=== PATIENT | male | born 1945 | race Caucasian/White ===

== ENCOUNTER 2023-09-01 12:50 | Outpatient (CLI) | payer OTHER, SELFPAY ==
--- NOTE | ~2023-09-01 | XR_ITS ---
Right Shoulder Technique: AP and scapular Y views were obtained. Clinical History: Pain Findings: No fracture or dislocation is seen. Osseous alignment is anatomic. There is moderate to adv anced AC joint degenerative change. There is minimal degenerative change of the glenohumeral joint. S oft tissues are unremarkable. Impression: Degenerative changes, as detailed above. Reviewed, dictated and finalized at location M. INE SHOP INSPECTOR Impression: Degenerative changes, as detailed above.
== END 2023-09-01 12:51 | disposition home or self-care (01) ==
PROVIDERS: PCP Family Medicine; Visit Provider Physician Assistant Surgical
DX: M25.511 Pain in right shoulder (principal)
CPT/HCPCS: 73030

== ENCOUNTER 2023-11-07 12:28 | Outpatient (CLI) | payer OTHER, SELFPAY ==
--- NOTE | ~2023-11-07 | MR_ITS ---
MRI of the right shoulder Technique: Axial proton-density fat-sat images, coronal proton density fat-sat and T2 fat-sat images, and sagittal T1-weighted and T2 fat-sat images were acquired. Clinical History: Pain Findings: There is severe AC joint degenerative change with prominent bony productive change of the d istal clavicle and acromion, with subcortical spur and prominent fluid within the joint space. Possib le rupture of the inferior acromioclavicular ligament. There is a 1.2 x 1.3 cm area of full-thickness tearing at the anterior, distal supraspinatus tendon i nsertion. There is background moderate supraspinatus and infraspinatus tendinosis. No partial or full -thickness tear of the infraspinatus tendon. Subscapularis tendon is intact, with mild to moderate te ndinosis. Tendon of long head of the biceps is intact. There is probable superior labral tear. Inferior glenohumeral ligament is intact, with mild thickening and increased signal. There is minimal glenohumeral joint effusion and mild degenerative change. There is mild fluid within the subacromial /subdeltoid bursa. No muscle atrophy or edema. Impression: 1.2 x 1.3 cm area of full-thickness tear at the anterior, distal supraspinatus tendon insertion. Severe AC joint degenerative change. Background rotator cuff tendinosis, as above. Probable focal superior labral tear. Reviewed, dictated and finalized at [facility]. LE PUNCH MACHINE OPERATOR HELPER Impression: 1.2 x 1.3 cm area of full-thickness tear at the anterior, distal supraspinatus tendon insertion. Severe AC joint degenerative change. Background rotator cuff tendinosis, as above. Probable focal superior labral tear.
== END 2023-11-07 12:29 | disposition home or self-care (01) ==
PROVIDERS: PCP Family Medicine; Visit Provider Physician Assistant Surgical
DX: M19.011 Primary osteoarthritis, right shoulder (principal)
CPT/HCPCS: 73221

== ENCOUNTER 2024-02-03 00:13 | Day surgery (SDC) | payer OTHER, SELFPAY ==
[2024-01-25 08:10] VITALS: BMI 26.9
--- NOTE | 2024-01-25 08:15 | PC.NURSE ---
Report to the Outpatient Waiting Room, entrance under the green pavilion located off [facility], at time ____30___ on date __02/03/24 . Planned Procedure Time: ___1030 . Time changes happen often and if your time is changed the preop area will call you the afternoon before. - You and your visitor will be asked to self-screen and do not enter if you have any COVID symptoms. - A mask is optional within the hospital at this time. Patients may have clear liquids (water, carbonated beverages, clear teas, apple juice) until 3 hours prior to surgery (0730 AM) with a maximum of 20 ounces. - No food from midnight until time of surgery - Infants may have breast milk until 4 hours before surgery, formula 6 hours prior to surgery. - Children will be allowed to drink immediately following surgery. If applicable, please bring a bottle or sippy cup to assist with drinking. Juice, water, soda, and popsicles are readily available. For infants on formula, please bring formula the day of surgery. Pacifiers are allowed. Take the following medications with a SIP of water the morning of surgery: NONE DO NOT STOP ANY OF YOUR OTHER PRESCRIPTION MEDICATIONS PRIOR TO SURGERY ?EXCEPT THE FOLLOWING Medications to discontinue per physician ___PT STATES TO STOP ALL VITAMINS/SUPPLEMENTS 7 DAYS PRIOR TO SURGERY PER DR. LIMON, Date to take last dose 01/26/24_ Please no make-up, nail uzbek, hairspray, perfume, deodorant, or body powder the day of surgery. No jewelry (including any body piercings) or valuables the day of surgery, leave them at home. Please take a shower or bath the night before, or the morning of, surgery with an antibacterial soap. Wear comfortable, loose fitting clothing. Children are encouraged to wear pajamas. - Jewelry must be removed prior to entering the operating room. Rings and piercings that are not removed may be cut off. - The hospital will not accept responsibility for valuables. - Please leave all valuables, including medications, at home the day of surgery. If you are going home after surgery, a licensed forklift driver must drive you home. - NO public transportation without another adult if you receive anesthesia. - We recommend that an adult stay with you for 24 hours following discharge. - We also recommend that you do not drive, make important decision, drink alcoholic beverages, or take any drugs that were not prescribed by your health care provider for at least 24 hours after your discharge time. For Pediatric surgeries, we recommend two adults accompany the child home. Follow any additional instructions given to you from your surgeon. If you or anyone in your household have experienced Covid symptoms in the past week, please notify your surgeon or the nurse liaison at the phone number below for possible testing. Telephone instructions given to PT and asked if any additional questions and then verbalized understanding. Patient advised to call surgeon office or pre surgery nurse liaison [phone] if any additional questions.
[2024-02-03] VITALS (12 sets, daily range): BP systolic 90–133; BP diastolic 50–88; PULSE 54–69; RESP 14–18; TEMP 36.1–36.2; O2SAT 93–99; BMI 26.9
--- NOTE | ~2024-02-03 | XR_ITS ---
EXAMINATION: XR shoulder RT min 2V DATE: 02/03/2024 12:23 INDICATION: Right shoulder rotator cuff repair. Postop. TECHNIQUE: 2 views of right shoulder were obtained. COMPARISON: Right shoulder radiographs 09/01/2023 FINDINGS: Bone alignment is normal. No fracture. There is mild osteoarthritis of glenohumeral joint. There are are changes of resection of osteophytes from acromion and distal clavicle. There is soft ti ssue gas, consistent with recent surgery. IMPRESSION: 1. Mild glenohumeral joint osteoarthritis. Reviewed, dictated and finalized at location E.
[2024-02-03] MEDS: LACTATED RINGERS 1,000 ML 30 ML IV CONT ×2 (08:45→12:09)
[2024-02-03] MEDS: KETOROLAC 15 MG/ML VIAL (*BKC) IV PUSH (08:57)
[2024-02-03] MEDS: ACETAMINOPHEN 500 MG TABLET 1000 MG PO (08:57)
--- NOTE | 2024-02-03 09:06 | WPDHPUPDATE1 ---
History and Physical Update Update Date/Time: 02/03/24 09:06 History and Physical has been reviewed, including an updated exam of the patient. There are NO changes in the patient's condition. Risks, benefits, and alternatives have been discussed and questions answered. Patient agrees to proceed with procedure.
[2024-02-03] MEDS: ceFAZolin 2 GM/D5W 50 ML 2 GM/50 ML BAG IVPB (09:37)
--- NOTE | 2024-02-03 09:38 | WPDANESEPPF ---
Anes - Initial Pre Proc Eval Procedure: Operation Date: 02/03/24 10:30 Proposed Procedures p Right Shoulder Arthroscopic Rotator Cuff Repair Distal Clavicle Excision with Subacromial Decompression - Lazaro Hanley MD Date/Time: 02/03/24 09:38 Surgeon: Lazaro Hanley MD Pre Op Diagnosis: right rotator cuff tear Patient Data Age: 78 Gender: M Height: 1.79 m Weight: 86.5 kg Last Vital Signs Temp 97.2 F L 02/03/24 08:25 Pulse 64 02/03/24 08:25 Resp 14 02/03/24 08:25 BP 133/62 02/03/24 08:25 Pulse Ox 99 02/03/24 08:25 O2 Del Method Room Air 02/03/24 08:25 Allergies Allergy/AdvReac Type Severity Reaction Status Date / Time No Known Allergies Allergy Verified 02/03/24 09:00 Home Medications Medication Instructions Recorded Confirmed Type multivitamin 1 tablet PO DAILY 07/02/20 02/03/24 History Prevagen 1 tab-cap DAILY 01/25/24 02/03/24 History vit C 250 mg-vit E 90 mg-zinc 40 1 tablet PO DAILY 01/25/24 02/03/24 History mg-copper 1 ft-ytidnw-bewidk capsule (PreserVision AREDS-2) oxycodone-acetaminophen 5 mg-325 1 - 2 tablet PO Q4-6H PRN pain #30 02/03/24 Rx mg tablet tabs Patient hx anesthesia problems: none Family hx anesthesia problems: none Results Review: All pre-operative results and documents have been reviewed as part of the pre-operative evaluation. [facility] Past Medical History Medical History CKD (chronic kidney disease) stage 3, GFR 30-59 ml/min HLD (hyperlipidemia) IFG (impaired fasting glucose) Social History Social History Years smoked: 1 Smoking status: Former smoker Tobacco type: cigarettes Second hand tobacco smoke exposure: No Smoking end date: 09/20/59 Alcohol intake: never Substance use: never Substance use type: does not use Do You Feel Safe in your Home?: Yes Lack of Transportation: No Lack of Food: Never True Current Housing: I Have Housing Concerned About Future Housing: No Difficulty Paying Gas/Electric Bills: No Difficulty Paying for Meds: No Currently Unemployed: No Education: High School Diploma/GED Difficulty w/ Childcare or Family Care: No Living arrangements: with family Occupation/Education: retired Gender identity (if verbalized by the patient): Male Sexual Orientation (if Verbalized by the Patient): Straight or Heterosexual Spiritual care concerns: No Anes - Eval Final PreProcedure Day of Procedure 02/03/24 09:38 Patient weight: normal Heart: regular rate and rhythm Lungs: clear to auscultation Airway: Mallampati scale class II Neurological: alert and oriented Last oral intake: >/= 8 hours ASA classification: II Emergent: no Anesthetic plan: proceed Anesthesia type and monitoring: general, regional (ISB discussed w pt and family. ) other and standard monitoring Results Review: All pre-operative results and documents have been reviewed as part of the pre-operative evaluation. Pt w CKD stage 3, otherwise very physically active w gym work several times/week, no cp or sob. Informed Consent: The patient's anesthetic plan and its attendant risks and benefits were discussed with the patient/family/POA. Questions were solicited and answers provided to the satisfaction of the patient/family/POA.
--- NOTE | 2024-02-03 09:39 | WPDANESPNB ---
Anes - Peripheral Nerve Block Date/Time: 02/03/24 09:39 I have discussed with the patient/family/POA the placement of a peripheral nerve block for post-operative pain management, including associated risks, benefits, complications, and side effects. Alternative methods of post-operative analgesia were detailed. Questions were solicited and answers provided to the satisfaction of the patient/family/POA. Time-Out: A pre-procedural Time-Out was completed immediately before starting the procedure and confirmed: Patient Identification, Site, Procedure, Patient Position and the Availability of Requisite Equipment. Clinical Indications: Acute post-operative pain management requested by the operative surgeon. Nerve Block Insertion Note Anes-nerve block: interscalene right Patient position: supine Skin prep: chlorhexidine Needle: 22 gauge, stimulating, insulated echogenic needle. Needle length: 80 mm Technique: ultrasound Injectate: other (Bupiv 0.5%, 15 mls. ) Observations: tolerated well Complications: none Procedure start time:: 7 Procedure end time::
[2024-02-03] MEDS: EPINEPHrine HCL INJ 1 MG/ML AMPUL 3 MG IRRIGATION (10:33)
--- NOTE | 2024-02-03 11:23 | SUR.OPER ---
Perry shoulder immobilizer sent with patient in packing marked with patient sticker
--- NOTE | 2024-02-03 12:41 | P.OP_ITS ---
Procedure Note - Detailed Date of Procedure 02/04/24 Pre-op Diagnosis Right rotator cuff tear Post-op Diagnosis Other (1. Rotator cuff tear 2. Subacromial impingement 3. A/C joint arthritis 4. Degenerative SLAP tear) Procedure Performed Right shoulder 1. Arthroscopic rotator cuff repair 2. Arthroscopic subacromial decompression 3. Arthroscopic distal clavicle excision 4. Arthroscopic labral debridement with biceps tenotomy Surgeon Lazaro Hanley MD Shredding Floor Equipment Operator Nancie Stokes PA-C Anesthesia General and Regional ( interscalene block) Description of Procedure Preoperative antibiotics were given. An interscalene block was administered in the preoperative area. The patient was bought brought to the operating room. A general anesthetic was administered. The patient was carefully positioned in the beach chair position. The head and neck were carefully positioned. The non operative extremity was also carefully positioned. The shoulder was prepped and draped in the usual sterile fashion. Examination was performed. Standard posterior and anterior arthroscopic portals were established. Inflow achieved with the arthroscopic pump using saline and epinephrine. The glenohumeral joint was carefully inspected. There was moderate chondromalacia on the humerus. M ild on the inferior and posterior glenoid. The labrum showed degenerative tearing posterior and anterior. Gentle debridement was performed on the labrum.. Attention was turned to the subacromial space. A complete bursectomy was performed. The rotator cuff and footprint were lightly debrided. There was a type 3 acromion. An acromioplasty was performed. The tear configuration was carefully assessed. At this point, 2 tunnels were created at the rotator cuff. The ArthroTunneler technique was utilized. Three sutures were passed through each tunnel. All sutures were then passed through the cuff tissue. I supplemental lateral suture anchor was used with 2 horizontal mattress sutures placed in the cuff tissue. The sutures were tied arthroscopically. The distal clavicle was excised with the bur. An accessory anterior portal was utilized. Approximately 10 mm of bone was removed. Care was taken to assess complete resection using the 70 degree arthroscope. The arthroscopic instruments were removed. The wounds were closed with 3-0 Monocryl subcuticular suture and steri strips. There were no complications. A sling was applied and the patient brought to the recovery room. Physician case management assistant, Nancie Stokes PA-C, required for surgery; including patient positioning, draping, arthroscopic camera operation, maintaining instrument position, suture retrieval, wound closure, and dressing and sling placement. Implants Arthrex SwiveLock anchor. Estimated Blood Loss 10 Pathology None sent Complications No immediate complications Condition Stable Disposition PACU [facility] Billing Surgery - Charge Forward: Surgery Billing
== END 2024-02-03 14:26 | disposition home or self-care (01) ==
PROVIDERS: PCP Family Medicine; Visit Provider Orthopaedic Surgery
PROC: (CPT 29805; principal; 2024-02-03 10:30)
DX: M75.121 Complete rotator cuff tear or rupture of right shoulder, not specified as traumatic (principal); M75.41 Impingement syndrome of right shoulder; M75.81 Other shoulder lesions, right shoulder; M19.011 Primary osteoarthritis, right shoulder; E78.5 Hyperlipidemia, unspecified; N18.30 Chronic kidney disease, stage 3 unspecified; R73.01 Impaired fasting glucose; G89.18 Other acute postprocedural pain; Z79.891 Long term (current) use of opiate analgesic; Z87.891 Personal history of nicotine dependence
CPT/HCPCS: 64415; 29827; 29826; 29824; 73030; A4565; A9270; C1713; J0171; J0690; J1885; J2250; J3010; J7120

== ENCOUNTER 2024-12-03 13:00 | Emergency (ER) | payer OTHER, SELFPAY ==
--- NOTE | ~2024-12-03 | CT_ITS ---
EXAMINATION: CT abdomen pelvis wo con DATE: 12/03/2024 15:20 INDICATION: urinary frequency, dysuria TECHNIQUE: Computed tomography (CT) of the abdomen and pelvis was performed without intravenous contr ast. Automated exposure control and iterative reconstruction technique were employed. The dose-length product was 269.72 mGy-cm. COMPARISON: None. FINDINGS: Lower thorax: Bibasilar scar. Coronary artery, aortic valve, and mitral calcification Liver: Normal. Biliary/Gallbladder: Gallbladder is normal. No bile duct dilation. Pancreas: No mass or duct dilation. Spleen: Normal. Adrenals:No mass. Kidneys: No suspicious mass, obstructing stone, or hydronephrosis. GI tract: No small or large bowel dilation. Normal appendix. Diverticulosis without diverticulitis. Mesentery/Peritoneum: No ascites, mass, or free air. Retroperitoneum: No mass. Pelvis: Partially distended urinary bladder with wall thickening. Nondependent layering fat density i ntraluminal material, not apparently associated with the bladder wall. No bladder air. Prostatomegaly . Soft Tissues: Right iliopsoas atrophy. Small fat-containing umbilical and left inguinal hernias. Bones: No acute osseous finding. Multilevel degenerative disc disease. Grade 1 anterolisthesis at L4 -5. IMPRESSION: Bladder wall thickening as can be seen with cystitis. Nondependent layering fat-density intraluminal material in the urinary bladder, which may represent c hyluria. Correlate for milky appearing urine and with urinalysis. Microscopic analysis of urine may r eveal fat globules. This finding can be seen following transurethral injection of lubricants or oils, surgery or trauma, parasitic and nonparasitic infections, and prostate carcinoma. Reviewed, dictated and finalized at location [facility]. IMPRESSION: Bladder wall thickening as can be seen with cystitis. Nondependent layering fat-density intraluminal material in the urinary bladder, which may represent chyluria. Correlate for milky appearing urine and with uri nalysis. Microscopic analysis of urine may reveal fat globules. This finding ca n be seen following transurethral injection of lubricants or oils, surgery or t rauma, parasitic and nonparasitic infections, and prostate carcinoma.
--- OUTSIDE RECORDS SUMMARY | 2024-12-03 13:05 | XMS_ITS | Clinical Summary ---
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 Name Role Phone Unavailable Primary Care Provider Unavailabl e Social History Tobacco Use Types Packs/Day Years Used Date Smoking Tobacco: Never Assessed Sex and Gender Information Value Date Recorded Sex Assigned at Not on file Legal Sex Male 4:29 PM CDT Gender Identity Not on file Sexual Orientation Not on file Plan of Treatment Health Maintenance Due Date Last Done Comments DTaP, Tdap and Td Vaccines ( 1 - Tdap) 1963 Zoster Vaccines (1 of 2) 1994 Pneumococcal Vaccine: 65+ Ye ars (1 of 1 - PCV) 2009 RSV Immunization or 60+ Years (1 - 1-dose 75+ series) 2019 COVID-19 Vaccine ( - 2023-2 5 season) 2024 Influenza Adult (#1) 2024 Meningococcal B Vaccine Aged Out No l onger eligible based on patient's age to complete this topic Meningococcal Vaccine Aged Out No lupillo jimmie eligible based on patient's age to complete this topic RSV Immunizations Under 20 Months Aged Out No longer eligible based on patient's age to complete this topic
[2024-12-03 13:11] VITALS: BP 147/80; PULSE 79; RESP 18; TEMP 36.3; O2SAT 100
--- OUTSIDE RECORDS SUMMARY | 2024-12-03 14:12 | XMS_ITS | Clinical Summary ---
Author Organization [facility] Address [address] [place] [id number] Care Team Providers Care Ground Crew Linesman Name Role Phone Unavailable Primary Care Provider [...]
[2024-12-03 14:16] LABS: Basophils Absolute Auto 0.1 K/mm3 (0.0-0.1); Basophils Percent Auto 0.7 % (0.2-1.2); Eosinophils Absolute Auto 0.1 K/mm3 (0-0.3); Eosinophils Percent Auto 1.9 % (0-4.4); Hematocrit 38.9 % (42.0-52.0); Hemoglobin 13.2 g/dL (14.0-18.0); Immature Granulocyte Absolute 0.06 K/mm3 (0.00-0.031); Immature Granulocyte Percent A 0.9 % (0-0.5); Lymphocytes Percent Auto 32.6 % (18.3-44.2); Mean Corpuscular HGB Conc 33.9 g/dl (32-36); Mean Corpuscular Hemoglobin 30.7 pg (26-34); Mean Corpuscular Volume 90.5 fl (80-100); Mean Platelet Volume 8.7 fl (7.4-10.4); Monocytes Absolute Auto 0.6 K/mm3 (0.1-0.6); Monocytes Percent Auto 8.3 % (2.6-8.5); Neutrophils Absolute Auto 3.8 K/mm3 (1.3-6.7); Neutrophils Percent Auto 55.6 % (45.5-73.1); Platelet Count Result 337 k/mm3 (150-375); Red Cell Distribution Width 12.5 % (11.5-14.5); White Blood Count 6.8 K/mm3 (4.5-10.0)
[2024-12-03 14:28] LABS: Anion Gap 8 mmol/L (4-12); Blood Urea Nitrogen 16 mg/dL (9-20); Calcium 9.2 mg/dL (8.4-10.2); Carbon Dioxide 26 mmol/L (22-30); Chloride 104 mmol/L (98-107); Estimated CRCL calculation 50 ml/min; Estimated Glomerular Filt Rate > 60; Glucose 119 mg/dL (65-110); Potassium 3.9 mmol/L (3.4-5.0); Sodium 138 mmol/L (137-145)
[2024-12-03 14:48] LABS: Add Urine Microscopic? YES; Appearance Urine Clear (Clear); Bacteria Urine None Seen /hpf; Bilirubin Urine Negative (Negative); Blood Urine Negative (Negative); Color Urine Dark Yellow (Yellow); Glucose Urine UA Negative (Negative); Ketones Urine Negative (Negative); Leukocyte Esterase Ur Trace LEU/UL (Negative); Nitrate Urine Negative (Negative); Non Pathogenic Casts 0-2; Protein Urine Negative (Negative); RBC Urine 0-2 /hpf (0-2); Specific Grav Ur 1.013 (1.001-1.035); Squamous Epithelial Cell Urine None Seen /hpf (Few); WBC Urine 0-5 /hpf (0-3); pH Urine 6.5 (5.0-9.0)
--- NOTE | 2024-12-03 14:49 | ED_ITS ---
HPI - Male Genitourinary General Chief complaint: Urogenital-Male Stated complaint: increased urinary frequency Time Seen by Provider: 12/03/24 14:04 Source: patient Mode of arrival: ambulatory Limitations: no limitations History of Present Illness HPI Narrative: This is a 79-year-old male that presents to the emergency department for urinary frequency. Ongoing over the last week. Reports associated chills. Denies fevers, flank pain, vomiting, hematuria. Related Data Home Medications ?Medication ?Instructions ?Recorded ?Confirmed ?Last Taken ?Type multivitamin 1 tablet PO DAILY 07/02/20 08/14/24 01/26/24 History Prevagen 1 tab-cap DAILY 01/25/24 08/14/24 01/26/24 History vit C 250 mg-vit E 90 mg-zinc 40 1 tablet PO DAILY 01/25/24 08/14/24 01/26/24 History mg-copper 1 an-nxulac-zxgrah capsule (PreserVision AREDS-2) Allergies Allergy/AdvReac Type Severity Reaction Status Date / Time No Known Allergies Allergy Verified 12/03/24 13:16 Review of Systems 2 Review of Systems: CONSTITUTIONAL: Denies fever GASTROINTESTINAL: Denies abdominal pain, nausea, vomiting GENITOURINARY: Denies dysuria or hematuria. All systems reviewed & are unremarkable except as noted in HPI and below PMFSH Past Medical History Medical History CKD (chronic kidney disease) stage 3, GFR 30-59 ml/min HLD (hyperlipidemia) IFG (impaired fasting glucose) Surgical History Surgical History Status post arthroscopy of right shoulder (~02/03/24) Right RCR, DCE, SAD, labral debridement with biceps tenotomy Social History Social History Years smoked: 1 Smoking status: Former smoker Tobacco type: cigarettes Second hand tobacco smoke exposure: No Smoking end date: 09/20/59 Alcohol intake: never Substance use: never Substance use type: does not use Do You Feel Safe in your Home?: Yes Lack of Transportation: No Lack of Food: Never True Current Housing: I Have Housing Concerned About Future Housing: No Difficulty Paying Gas/Electric Bills: No Difficulty Paying for Meds: No Currently Unemployed: No Education: High School Diploma/GED Difficulty w/ Childcare or Family Care: No Living arrangements: with family Occupation/Education: retired Gender identity (if verbalized by the patient): Male Sexual Orientation (if Verbalized by the Patient): Straight or Heterosexual Spiritual care concerns: No Exam 2 Narrative: GENERAL: Well-appearing, well-nourished, and in no acute distress. HEAD: Normocephalic, atraumatic. EYES: EOMI. CHEST: Clear to auscultation. No respiratory distress. No wheezes rales or rhonchi HEART: Regular rate and rhythm. No murmur heard. Normal peripheral pulses. ABDOMEN: Soft, nontender, nondistended, normal active bowel sounds. No CVA tenderness EXTREMITIES: Normal range of motion. No edema. SKIN: Warm, dry, no rash. NEURO: No focal deficits. Alert and oriented x3. PSYCH: Normal mood and affect Course Course Emergency Course: Patient updated on his workup and agrees with plan of care Consultations Consultation #1: Spoke with Dr. Coleman about patient and workup. Patient should follow up outpatient for a cystoscopy Date: 12/03/24 Vital Signs Vital signs: Vital Signs Temperature 97.4 F L 12/03/24 13:11 Pulse Rate 79 12/03/24 13:11 Respiratory Rate 18 12/03/24 13:11 Blood Pressure 147/80 H 12/03/24 13:11 Pulse Oximetry 100 12/03/24 13:11 Oxygen Delivery Room Air 12/03/24 13:11 Temperature 97.4 F L 12/03/24 13:11 Pulse Rate 79 12/03/24 13:11 Respiratory Rate 18 12/03/24 13:11 Blood Pressure 147/80 H 12/03/24 13:11 Pulse Oximetry 100 12/03/24 13:11 Oxygen Delivery Room Air 12/03/24 13:11 MDM - Male Genitourinary MDM Narrative Medical decision making narrative: Patient presents to the emergency department for urinary frequency. Patient is afebrile and nontoxic appearing. Cbc without leukocytosis. Kidney function is normal. Urine with 1+ leuk esterase, otherwise is negative for any findings of infection. This will be sent for culture. CT abdomen pelvis shows bladder wall thickening, prostatomegaly. Spoke with Dr. Coleman about patient and workup. Patient should follow up outpatient for a cystoscopy. Patient updated on his workup and agrees with plan of care Differential Diagnosis Differential diagnosis: Likely urinary tract infection, prostatitis, acute retention of urine and other (Kidney stone, prostatomegaly) Lab Data Attestation: I reviewed the patient's lab results. 12/03/24 14:11 12/03/24 14:11 Labs: Lab Results 12/03/24 12/03/24 Range/Units 14:11 14:40 WBC 6.8 (4.5-10.0) K/mm3 RBC 4.30 L (4.6-6.20) M/mm3 Hgb 13.2 L (14.0-18.0) g/dL Hct 38.9 L (42.0-52.0) % MCV 90.5 (80-100) fl MCH 30.7 (26-34) pg MCHC 33.9 (32-36) g/dl RDW 12.5 (11.5-14.5) % Plt Count 337 (150-375) k/mm3 MPV 8.7 (7.4-10.4) fl Immature Gran % (Auto) 0.9 H (0-0.5) % Neut % (Auto) 55.6 (45.5-73.1) % Lymph % (Auto) 32.6 (18.3-44.2) % Wilkin % (Auto) 8.3 (2.6-8.5) % Eos % (Auto) 1.9 (0-4.4) % Baso % (Auto) 0.7 (0.2-1.2) % Lymph # (Auto) 2.20 (0.9-3.2) K/mm3 Wilkin # (Auto) 0.6 (0.1-0.6) K/mm3 Eos # (Auto) 0.1 (0-0.3) K/mm3 Baso # (Auto) 0.1 (0.0-0.1) K/mm3 Abs Immat Gran (auto) 0.06 H (0.00-0.031) K/mm3 Absolute Neuts (auto) 3.8 (1.3-6.7) K/mm3 Absolute Nucleated RBC 0.000 (0.0-0.012) K/mm3 Nucleated RBC % 0.0 (0.0-0.2) % Sodium 138 (137-145) mmol/L Potassium 3.9 (3.4-5.0) mmol/L Chloride 104 (98-107) mmol/L Carbon Dioxide 26 (22-30) mmol/L Anion Gap 8 (4-12) mmol/L BUN 16 (9-20) mg/dL Creatinine 1.09 (0.7-1.3) mg/dL Estim Creat Clear Calc 50 ml/min Estimated GFR > 60 (59 - ) Glucose 119 H (65-110) mg/dL Calcium 9.2 (8.4-10.2) mg/dL Urine Color Dark yellow (Yellow) Urine Appearance Clear (Clear) Urine pH 6.5 (5.0-9.0) Ur Specific [place] 1.013 (1.001-1.035) Urine Protein Negative (Negative) mg/dL Urine Glucose (UA) Negative (Negative) mg/dL Urine Ketones Negative (Negative) mg/dL Ur Blood (Man) Negative (Negative) Urine Nitrate Negative (Negative) Urine Bilirubin Negative (Negative) Urine Urobilinogen 1.0 (<2.0) mg/dL Leukocyte Esterase Rfl Trace H (Negative) SWAPNA/UL Urine RBC 0-2 (0-2) /hpf Urine WBC 0-5 (0-3) /hpf Ur Squamous Epith Cells None seen (Few) /hpf Urine Bacteria None seen /hpf Urine Casts 0-2 Imaging Data Radiologist's impression: ITS Impressions Abdomen/Pelvis CT 12/03/24 16:15 IMPRESSION: Bladder wall thickening as can be seen with cystitis. Nondependent layering fat-density intraluminal material in the urinary bladder, which may represent chyluria. Correlate for milky appearing urine and with urinalysis. Microscopic analysis of urine may reveal fat globules. This finding can be seen following transurethral injection of lubricants or oils, surgery or trauma, parasitic and nonparasitic infections, and prostate carcinoma. Critical Care Time Critical Care Time Critical Care Time: No Discharge Plan Discharge Clinical Impression: Bladder wall thickening, Enlarged prostate Patient Disposition: Home, Self-Care Condition: Stable Instructions: Enlarged Prostate (BPH) (ED), Cystoscopy (DC) Additional Instructions: Return to the ER if you experience fever, abdominal pain with nausea and vomiting, you are unable to keep down liquids or solids, pain or burning with urination, blood in the urine or any other symptoms that are concerning to you The urologist recommends you follow up outpatient for a cystoscopy to further evaluate findings on your CT scan Follow up with Urology (Dr. Nieves). Call in the morning to make an appointment Patient Language: Azerbaijani Prescriptions: No Action multivitamin Tablet 1 tablet PO DAILY PreserVision AREDS-2 250-90-40-1 mg Capsule 1 tablet PO DAILY Prevagen 1 tab-cap DAILY Follow-up/Referrals: Yaron Mcmahno MD [Primary Care Provider] - Jamal Nieves MD [Physician] -
[2024-12-03 17:10] VITALS: BP 165/93; PULSE 64; RESP 18; O2SAT 100
== END 2024-12-03 17:12 | disposition home or self-care (01) ==
PROVIDERS: Emergency Provider Physician Assistant; PCP Family Medicine
DX: N40.0 Benign prostatic hyperplasia without lower urinary tract symptoms (principal); R93.41 Abnormal radiologic findings on diagnostic imaging of renal pelvis, ureter, or bladder; N18.30 Chronic kidney disease, stage 3 unspecified; E78.5 Hyperlipidemia, unspecified; Z87.891 Personal history of nicotine dependence
CPT/HCPCS: 36415; 74176; 80048; 81001; 85025; 87086; 99284

== ENCOUNTER 2025-04-30 13:40 | Emergency (ER) | payer OTHER, SELFPAY ==
[2025-04-30 13:49] VITALS: BP 118/68; PULSE 76; RESP 18; TEMP 36.8; O2SAT 97
--- NOTE | 2025-04-30 13:55 | ED.SKABFB ---
HPI - Skin/Abscess/Foreign Bdy General Chief complaint: Skin/Abscess/Foreign Body Stated complaint: Rash Time Seen by Provider: 04/30/25 13:55 Source: patient, RN notes reviewed and old records reviewed Mode of arrival: ambulatory Limitations: no limitations History of Present Illness HPI narrative: 80-year-old male presents to the [facility] with complaints of a rash to the right antecubital area states has been there about a week, appeared a day after he was cutting weeds. Has tried multiple [id number] products with no relief. Describes it as being very itchy, dry. Currently has calamine lotion on No swelling noted. Patient also was concerned he has small red bumps to his bilateral legs that started yesterday. No treatment for those. Related Data Home Medications ?Medication ?Instructions ?Recorded ?Confirmed ?Last Taken ?Type multivitamin 1 tablet PO DAILY 07/02/20 01/03/25 01/26/24 History vit C 250 mg-vit E 90 mg-zinc 40 1 tablet PO DAILY 01/25/24 01/03/25 01/26/24 History mg-copper 1 oo-kwrbja-bdzljk capsule (PreserVision AREDS-2) Allergies Allergy/AdvReac Type Severity Reaction Status Date / Time No Known Allergies Allergy Verified 04/30/25 14:02 Review of Systems Review of Systems: All systems reviewed & are unremarkable except as noted in HPI and below Constitutional: Constitutional: Reports no additional constitutional complaints ENT: Reports system reviewed and no additional complaints, except as documented Cardiovascular: Cardiovascular: Reports no additional cardiovascular complaints, Denies chest pain and Denies dyspnea Respiratory: Respiratory: Reports no additional respiratory complaints, Denies chest congestion, Denies cough and Denies dyspnea Musculoskeletal: Musculoskeletal: Reports no additional musculoskeletal complaints Integumentary/Breasts: Skin/Breast: Reports as per HPI [facility] Past Medical History Medical History IFG (impaired fasting glucose) CKD (chronic kidney disease) stage 3, GFR 30-59 ml/min HLD (hyperlipidemia) Surgical History Surgical History Status post arthroscopy of right shoulder (~02/03/24) Right RCR, DCE, SAD, labral debridement with biceps tenotomy Social History Social History (Updated 01/03/25 @ 15:20 by Gela Alfred) Social History: Years smoked: 1 Smoking status: Former smoker Tobacco type: cigarettes Second hand tobacco smoke exposure: No Smoking end date: 09/20/59 Alcohol intake: never Substance use: never Substance use type: does not use Do You Feel Safe in your Home?: Yes Lack of Transportation: No Lack of Food: Never True Current Housing: I Have Housing Concerned About Future Housing: No Difficulty Paying Gas/Electric Bills: No Difficulty Paying for Meds: No Currently Unemployed: No Education: High School Diploma/GED Difficulty w/ Childcare or Family Care: No Living arrangements: with family Occupation/Education: retired Gender identity (if verbalized by the patient): Male Sexual Orientation (if Verbalized by the Patient): Straight or Heterosexual Spiritual care concerns: No Comments At the time of my signature, I reviewed and agree with the nursing past medical, surgical, social, and family history. There is no relevant family history pertinent to the patient complaint. Exam Const: General: cooperative, healthy appearing, comfortable, no acute distress, well developed, alert and well nourished Nutritional Appearance: well nourished Orientation/consciousness: patient oriented x3 Limitations: no limitations HENMT: Head: normal to inspection Eyes: General: appearance normal, both eyes and all related structures Alignment and Position: alignment normal Neck: Neck: normal visual inspection, full ROM, no lymphadenopathy and no meningeal signs Chest: Chest palpation & inspection: normal inspection of the chest Resp: Effort & Inspection: normal respiratory effort and able to speak in complete sentences Auscultation: clear to auscultation bilaterally, no crackles, no rales, no rhonchi and no wheezes Cardio: Rate: regular rate Skin: General skin exam: normal color and no rashes or lesions noted Other: Multiple small red bumps bilateral legs, patient describes itchy, most consistent with insect bites. Red patch area, dry, pink, no fluctuance, right antecubital area, not circumferential Neuro: General: patient oriented x3, gait normal, moves all extremities and no meningeal signs Cognition (Neuro): normal cognition Speech: normal speech Gait exam (Neuro): Normal gait present Extrem: General: normal to inspection, full ROM, capillary refill normal and normal gait Right upper extremity: full ROM, normal capillary refill and elbow/forearm normal ROM and distal pulses intact; no tenderness Psych: Appearance: grossly normal and well kempt Mental Status: mental status grossly normal Speech and movement: Normal speech and movement present and Clear speech present Affect: normal affect Attitude: cooperative Course Course Level of Care: Express Care Visit Vital Signs Vital signs: Vital Signs Temperature 98.2 F 04/30/25 13:49 Pulse Rate 76 04/30/25 13:49 Respiratory Rate 18 04/30/25 13:49 Blood Pressure 118/68 04/30/25 13:49 Pulse Oximetry 97 04/30/25 13:49 Oxygen Delivery Room Air 04/30/25 13:49 Temperature 98.2 F 04/30/25 13:49 Pulse Rate 76 04/30/25 13:49 Respiratory Rate 18 04/30/25 13:49 Blood Pressure 118/68 04/30/25 13:49 Pulse Oximetry 97 04/30/25 13:49 Oxygen Delivery Room Air 04/30/25 13:49 Reviewed MDM - Skin/Abscess/Foreign Bdy MDM Narrative Medical decision making narrative: Patient presents with 2 different rashes 1 that appeared week ago after cutting weeds, 2nd appeared yesterday. Patient sitting in exam room. Patient is nontoxic, vitals are stable. Patient is appropriate for outpatient treatment of contact dermatitis Discharge instructions reviewed with patient, as well as provided in writing per nursing staff. The instructions also include specific and strict return/GO TO THE ER as well as f/u information. All questions have been answered, and the patient deny any further questions with discharge and discharge plan. Some parts of this dictation were generated by voice recognition software and may contain typographical and/or grammatical inaccuracies. Differential Diagnosis Differential diagnosis: Likely abscess of skin or subcutaneous tissue, urticaria, cellulitis, eczema, insect bites, impetigo and contact dermatitis Critical Care Time Critical Care Time Critical Care Time: No Discharge Plan Discharge Clinical Impression: Contact dermatitis Qualifiers: Contact dermatitis type: unspecified Insect bite Qualifiers: Encounter type: initial encounter Patient Disposition: Home Condition: Stable Instructions: Antibiotic Form, Contact Dermatitis (DC) Additional Instructions: The most important part of your care is follow up with Primary care provider. Take Zyrtec every day for 14 days Take Pepcid 20mg daily for 14 days Take the steroids starting today and take next dose in the morning. This can cause insomnia if taken too late in the afternoon. Avoid hot showers, Take cool showers. Hot showers will make rashes worse Apply cool compresses every 2-3 hours for 15 minutes Go to the ER for new or worsening symptoms such as shortness of breath. Patient Language: Salvadorean Prescriptions: New triamcinolone acetonide 0.1 % cream 1 applic topical BID Qty: 80 0RF prednisone 20 mg tablet See Rx Instructions .Route .COMPLEX Qty: 15 0RF Rx Instructions: Take 40 mg daily for 5 days, 20 mg daily for 5 days No Action multivitamin Tablet 1 tablet PO DAILY PreserVision AREDS-2 250-90-40-1 mg Capsule 1 tablet PO DAILY Follow-up/Referrals: Yaron Mcmahon MD [Primary Care Provider] - 1 Week (express care follow up) Time of Disposition: 14:05
== END 2025-04-30 14:11 | disposition home or self-care (01) ==
PROVIDERS: Emergency Provider Nurse Practitioner; PCP Family Medicine
DX: L25.9 Unspecified contact dermatitis, unspecified cause (principal); S80.862A Insect bite (nonvenomous), left lower leg, initial encounter; S80.861A Insect bite (nonvenomous), right lower leg, initial encounter; W57.XXXA Bitten or stung by nonvenomous insect and other nonvenomous arthropods, initial encounter; N18.30 Chronic kidney disease, stage 3 unspecified; E78.5 Hyperlipidemia, unspecified; R73.01 Impaired fasting glucose; Z87.891 Personal history of nicotine dependence
CPT/HCPCS: 99213; G0463